=== PATIENT | female | born 1940 | race Caucasian/White ===

== ENCOUNTER 2021-08-31 11:42 | Inpatient (IN) ==
[2021-08-31] MEDS ORDERED: DEXAMETHASONE 4 MG TABLET PO ONE (12:10)
[2021-08-31] MEDS ORDERED: LACTATED RINGERS 1,000 ML IV ONE (12:10)
[2021-08-31 12:27] LABS: POC Calcium, Ionized 0.84 (1.16-1.32); POC Creatinine 1.2 (0.6-1.2); POC Potassium 2.9 (3.3-5.1)
--- NOTE | 2021-08-31 12:39 | EKG ---
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
[2021-08-31] MEDS ORDERED: POTASSIUM CHLORIDE 20 MEQ TABLET PO ONE ×2 (12:41→20:28)
--- NOTE | 2021-08-31 12:44 | XRay Report ---
INDICATION: dyspnea, covid TECHNIQUE: AP portable semiupright chest x-ray COMPARISON: None FINDINGS:Right-sided Port-A-Cath with its tip in the proximal right atrium Lungs:Focal right basilar infiltrate at the cardiophrenic angle. Appearance is consistent with pneumonia. Lungs are otherwise negative. No left lung infiltrate. Heart, vascular:No significant cardiomegaly. Pulmonary vascularity is normal. No pulmonary edema or pulmonary congestion Mediastinum, [place]:No mediastinal widening. No hilar mass Pleura:No pleural fluid. No pleural-based mass or calcification. There is mild elevation of the right hemidiaphragm Skeletal:Negative. IMPRESSION: Right basilar infiltrate consistent with pneumonia Interpreted and Authenticated by: Efren Hyde 08/31/21
[2021-08-31 13:21] LABS: Basophils # (Auto) 0.01 K/mcL (0.00-0.30); Basophils % (Auto) 0.2 % (0.0-2.0); Eosinophils # (Auto) 0.04 K/mcL (0.00-0.70); Eosinophils % (Auto) 0.8 % (0.0-7.0); Hematocrit 27.4 % (34.1-44.9); Hemoglobin 8.4 g/dL (11.2-15.7); Lymphocytes # (Auto) 0.11 K/mcL (1.50-4.80); Lymphocytes % (Auto) 2.1 % (15.5-49.0); Mean Cell Volume 75.1 fL (80.0-100.0); Mean Corpuscular HGB Conc 30.7 g/dL (31.0-36.0); Mean Platelet Volume 11.2 fL (7.4-10.4); Monocytes # (Auto) 0.31 K/mcL (0.10-0.90); Monocytes % (Auto) 5.8 % (1.0-12.0); Neutrophils % (Auto) 91.1 % (38.0-78.0); Platelet Count 217 K/mcL (140-440); RBC 3.65 M/mcL (3.59-5.38); Red Cell Distribution Width 17.4 % (11.5-14.5); WBC 5.3 K/mcL (4.5-11.0)
[2021-08-31 13:35] LABS: ALT/SGPT 9 U/L (<40); AST/SGOT 18 U/L (<32); Albumin 2.9 gm/dL (3.2-5.2); Alkaline Phosphatase 82 U/L (39-117); Bilirubin,Total 0.7 mg/dL (0.1-1.0); Blood Urea Nitrogen 21 mg/dL (8-23); Carbon Dioxide 24 mmol/L (22-30); Chloride 91 mmol/L (96-108); Globulin 2.9 gm/dL (2.2-3.7); Glomerular Filtration Rate 47; Glucose 90 mg/dL (70-105)
--- NOTE | 2021-08-31 13:58 | Emergency Department Note ---
HPI General Chief complaint: Cold/Flu Symptoms Stated complaint: fatigue, nausea, vomiting, diarrhea COVID + Time Seen by Provider: 08/31/21 11:56 Source: patient Mode of arrival: wheelchair Limitations: no limitations History of Present Illness HPI Narrative: Narrative: 81-year-old female with history of lymphoma post CAR-T therapy several years ago, in remission, no other known medical problems presents from [facility] with her for evaluation of general malaise and weakness with known COVID-19 for about the past 7 days. She was here on a cruise ship which was her vector and her had COVID as well. She is traveling here from [place]. She denies any chest pain or any significant shortness of breath. She was found to be hypoxic on arrival requiring nasal cannula oxygen and was placed on this immediately. She denies GI distress. She has been tolerating p.o. but very decreased. Related Data Allergies Allergy/AdvReac Type Severity Reaction Status Date / Time codeine Allergy Unknown Unknown Verified 08/31/21 11:46 Review of Systems ROS ROS Narrative: Narrative: All systems ED: reviewed and negative except as stated. [facility] Narrative Patient History Narrative: Narrative: Medical/Surgical/Family History All Active Problems (Updated 08/31/21 @ 14:54 by Isaias Lundy DO) Pneumonia due to 2019 novel coronavirus (Acute) Acute hypoxemic respiratory failure (Acute) Social History Smoking Status: Never smoker Exam Narrative Narrative: Narrative: General Limitations: no limitations General appearance: Present alert and in no apparent distress Head Head: Present atraumatic and normocephalic Eye Eye: Present normal appearance and EOMI ENT ENT: Present normal exam and mucous membranes moist Neck Neck: Present normal inspection and full ROM Chest Chest: Present normal inspection and symmetric chest wall rise Respiratory Respiratory: Present normal lung sounds bilaterally; Absent respiratory distress Cardiovascular Cardiovascular: Present regular rate and normal rhythm Adbominal Abdominal: Present soft; Absent tenderness Extremities Extremities: Present normal inspection and full ROM Neurological Neurological: Present alert, oriented X3 and normal gait Psychiatric Psychiatric: Present normal affect and normal mood Skin Skin: Present warm (WNL), dry and normal color Course Vital Signs Vital signs: Vital Signs Temperature 98.1 F 08/31/21 11:46 Pulse Rate 103 H 08/31/21 11:46 Respiratory Rate 16 08/31/21 11:46 Blood Pressure 127/58 08/31/21 11:46 Pulse Oximetry (%) 86 L 08/31/21 11:46 Temperature 98.1 F 08/31/21 11:46 Pulse Rate 87 08/31/21 13:31 Respiratory Rate 17 08/31/21 13:31 Blood Pressure 113/55 08/31/21 13:31 Pulse Oximetry (%) 94 08/31/21 13:31 MDM MDM Narrative Medical decision making narrative: Narrative: Patient with pneumonia secondary to COVID-19 associated with hypoxia requiring nasal cannula. She was found to have mild hyponatremia and hypokalemia. She was given IV fluids, dexamethasone, potassium supplementation. She is otherwise well-appearing. She has been vaccinated for COVID x4. Of note, her is using travel insurance to arrange transfer back to [place]. While this is being worked out with bed situation, will admit here Lab Data Lab results reviewed: Yes I reviewed the patient's lab results. Result diagrams: 08/31/21 12:20 08/31/21 12:20 Labs: Lab Results 08/31/21 08/31/21 08/31/21 Range/Units 12:20 12:20 12:22 WBC 5.3 (4.5-11.0) K/mcL RBC 3.65 (3.59-5.38) M/mcL Hgb 8.4 L (11.2-15.7) g/dL Hct 27.4 L (34.1-44.9) % POC Hct (36-48) MCV 75.1 L (80.0-100.0) fL MCH 23.0 L (26.0-34.0) pg MCHC 30.7 L (31.0-36.0) g/dL RDW 17.4 H (11.5-14.5) % Plt Count 217 (140-440) K/mcL MPV 11.2 H (7.4-10.4) fL Neut % (Auto) 91.1 H (38.0-78.0) % Lymph % (Auto) 2.1 L (15.5-49.0) % [place] % (Auto) 5.8 (1.0-12.0) % Eos % (Auto) 0.8 (0.0-7.0) % Baso % (Auto) 0.2 (0.0-2.0) % Lymph # (Auto) 0.11 L (1.50-4.80) K/mcL [place] # (Auto) 0.31 (0.10-0.90) K/mcL Eos # (Auto) 0.04 (0.00-0.70) K/mcL Baso # (Auto) 0.01 (0.00-0.30) K/mcL Absolute Neutrophils 4.86 (1.80-8.00) K/mcL POC Sodium (133-145) Sodium 128 L (133-145) mmol/L POC Potassium (3.3-5.1) Potassium 3.0 L (3.3-5.1) mmol/L POC Chloride (96-108) Chloride 91 L (96-108) mmol/L Carbon Dioxide 24 (22-30) mmol/L POC Total CO2 (22-30) Anion Gap 13.0 (8.0-16.0) POC BUN (6-20) BUN 21 (8-23) mg/dL Creatinine 1.1 (0.6-1.1) mg/dL POC Creatinine (0.6-1.2) GFR Calculation 47 Glucose 90 (70-105) mg/dL POC Glucose (70-105) Calcium 7.0 L (8.6-10.4) mg/dL POC WB Ioniz Calcium (1.16-1.32) Total Bilirubin 0.7 (0.1-1.0) mg/dL AST 18 (<32) U/L ALT 9 (<40) U/L Alkaline Phosphatase 82 (39-117) U/L Total Protein 5.8 L (5.9-8.4) gm/dL Albumin 2.9 L (3.2-5.2) gm/dL Globulin 2.9 (2.2-3.7) gm/dL Albumin/Globulin Ratio 1.0 (1.0-2.3) POC Troponin I 0.06 (0.02-0.08) 08/31/21 Range/Units 12:24 WBC (4.5-11.0) K/mcL RBC (3.59-5.38) M/mcL Hgb (11.2-15.7) g/dL Hct (34.1-44.9) % POC Hct 26.0 L (36-48) MCV (80.0-100.0) fL MCH (26.0-34.0) pg MCHC (31.0-36.0) g/dL RDW (11.5-14.5) % Plt Count (140-440) K/mcL MPV (7.4-10.4) fL Neut % (Auto) (38.0-78.0) % Lymph % (Auto) (15.5-49.0) % [place] % (Auto) (1.0-12.0) % Eos % (Auto) (0.0-7.0) % Baso % (Auto) (0.0-2.0) % Lymph # (Auto) (1.50-4.80) K/mcL [place] # (Auto) (0.10-0.90) K/mcL Eos # (Auto) (0.00-0.70) K/mcL Baso # (Auto) (0.00-0.30) K/mcL Absolute Neutrophils (1.80-8.00) K/mcL POC Sodium 129 L (133-145) Sodium (133-145) mmol/L POC Potassium 2.9 L* (3.3-5.1) Potassium (3.3-5.1) mmol/L POC Chloride 92 L (96-108) Chloride (96-108) mmol/L Carbon Dioxide (22-30) mmol/L POC Total CO2 25.0 (22-30) Anion Gap (8.0-16.0) POC BUN 20 (6-20) BUN (8-23) mg/dL Creatinine (0.6-1.1) mg/dL POC Creatinine 1.2 (0.6-1.2) GFR Calculation Glucose (70-105) mg/dL POC Glucose 92 (70-105) Calcium (8.6-10.4) mg/dL POC WB Ioniz Calcium 0.84 L (1.16-1.32) Total Bilirubin (0.1-1.0) mg/dL AST (<32) U/L ALT (<40) U/L Alkaline Phosphatase (39-117) U/L Total Protein (5.9-8.4) gm/dL Albumin (3.2-5.2) gm/dL Globulin (2.2-3.7) gm/dL Albumin/Globulin Ratio (1.0-2.3) POC Troponin I (0.02-0.08) Radiology Data Radiology results reviewed: Yes I reviewed the patient's radiology results. EKG Data EKG #1: EKG attestation: Yes I reviewed and interpreted this EKG. EKG results narrative: Sinus rhythm at a rate of 85. Normal axis. QTC 480. No acute ST-T changes. Normal EKG. CC TIME Critical Care Time Attestation: Approximately 30 minutes of critical care time was used in order to assess and manage the high probability of imminent or life threatening deterioration to acute hypoxemic respiratory failure secondary to covid which required my highest level of preparedness and interventions with frequent patient assessments. This time is excluding time spent on separately billable procedures. 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
[2021-08-31] MEDS ORDERED: ONDANSETRON 4 MG/2 ML VIAL IV PRN (14:53)
[2021-08-31] MEDS ORDERED: ACETAMINOPHEN 325 MG TABLET PO PRN (14:53)
--- NOTE | 2021-08-31 14:59 | Internal Med History&Physical ---
HPI History of Present Illness Patient information: Note initiated : 08/31/21 at 2:56 pm Service Date, if different from initiated Date: [as above] Patient: Tiana Anderson a 81 y/o F admitted on for Fatigue, Nausea, Vomiting, Diarrhea, COVID+. Chief Complaint: [SOB] Chief complaint: Fever, chills, malaise History of present illness: Ms. Anderson is a 81 year old F presents from her hotel room after she was on a cruise and was exposed to her who tested positive for COVID-19 and has now developed symptoms for the past week. The patient states that she is fully vaccinated and boosted. They are originally from [place] and are trying to return home. I discussed the case with the ER physician. The is working on disposition. In the interim, the hospital service has been asked admit the patient after she was found to be hypoxemic with an O2 of 86% on on ambient air. The patient states that she is experienced progressive malaise, fatigue and shortness of breath over the course of the week. On arrival she was hemodynamically stable and afebrile with a blood pressure of 113/53, heart rate of 94, respirate of 25, and O2 sat of 92% on 2 L. Review of Systems All systems: reviewed and no additional remarkable complaints except as stated Constitutional Constitutional: Present as per HPI, chills, fever(s), lethargy, malaise and night sweats EENT Eyes: Present as per HPI; Absent blurry vision Cardiovascular Cardiovascular: Present as per HPI; Absent chest pain, dyspnea, dyspnea on exertion, leg edema or palpatations Respiratory Respiratory: Present as per HPI and dyspnea; Absent cough, dyspnea on exertion, wheezing or stridor Gastrointestinal Gastrointestinal: Present as per HPI; Absent abdominal pain, diarrhea, dysphagia, hematemesis, melena, nausea or vomiting Musculoskeletal Musculoskeletal: Present as per HPI; Absent joint swelling, limited range of motion, muscle cramps, muscle weakness or myalgias Integumentary Integumentary: Present as per HPI; Absent erythema, new lesions, rash or wounds Neurological Neurological: Present as per HPI; Absent abnormal gait, behavioral changes, focal weakness, headache(s), loss of vision, numbness, sensory deficit or syncope Endocrine Endocrine: Absent change in body appearance, fatigue or heat intolerance Hematologic/Lymphatic Hematologic/Lymphatic: Present as per HPI PFSH PFSH All Active Problems (Updated 08/31/21 @ 14:54 by Isaias Lundy DO) Pneumonia due to 2019 novel coronavirus (Acute) Acute hypoxemic respiratory failure (Acute) MEDS/ALLERGIES Home Medications and Allergies Allergies Allergy/AdvReac Type Severity Reaction Status Date / Time codeine Allergy Unknown Unknown Verified 08/31/21 11:46 EXAM Constitutional Vitals: Temp Pulse Resp BP Pulse Ox 98.1 F 94 H 22 113/53 91 08/31/21 11:46 08/31/21 14:50 08/31/21 14:50 08/31/21 14:50 08/31/21 14:50 General appearance: average body habitus Head Head exam: Present atraumatic, normal inspection and normocephalic Eye Eye exam: Present EOMI, normal appearance and PERRL; Absent conjunctival injection ENT ENT exam: Present normal exam; Absent mucous membranes dry Neck Neck exam: Present full ROM; Absent lymphadenopathy Respiratory Respiratory exam: Present normal respiratory exam and decreased breath sounds; Absent CTAB, respiratory distress or wheezes Cardiovascular Cardiovascular exam: Present normal rate and rhythm and RRR; Absent JVD GI/Abdominal GI/Abdominal exam: Present normal bowel sounds and soft; Absent diminished bowel sounds, distended, guarding, mass, rebound or tenderness Neurological Exam Neurological exam: Present alert, CN II-XII intact and oriented X3 Psychiatric Psychiatric exam: Present normal affect and normal mood Skin Skin exam: Present intact and warm; Absent erythema, pallor, petechiae or rash DATA Data Completed and Pending Labs: Labs from last 24 hours 08/31/21 08/31/21 08/31/21 12:24 12:22 12:20 WBC RBC Hgb Hct POC Hct 26.0 L MCV MCH MCHC RDW Plt Count MPV Neut % (Auto) Lymph % (Auto) [place] % (Auto) Eos % (Auto) Baso % (Auto) Lymph # (Auto) [place] # (Auto) Eos # (Auto) Baso # (Auto) Absolute Neutrophils POC Sodium 129 L Sodium 128 L POC Potassium 2.9 L* Potassium 3.0 L POC Chloride 92 L Chloride 91 L Carbon Dioxide 24 POC Total CO2 25.0 Anion Gap 13.0 POC BUN 20 BUN 21 Creatinine 1.1 POC Creatinine 1.2 GFR Calculation 47 Glucose 90 POC Glucose 92 Calcium 7.0 L POC WB Ioniz Calcium 0.84 L Total Bilirubin 0.7 AST 18 ALT 9 Alkaline Phosphatase 82 Total Protein 5.8 L Albumin 2.9 L Globulin 2.9 Albumin/Globulin Ratio 1.0 POC Troponin I 0.06 08/31/21 12:20 WBC 5.3 RBC 3.65 Hgb 8.4 L Hct 27.4 L POC Hct MCV 75.1 L MCH 23.0 L MCHC 30.7 L RDW 17.4 H Plt Count 217 MPV 11.2 H Neut % (Auto) 91.1 H Lymph % (Auto) 2.1 L [place] % (Auto) 5.8 Eos % (Auto) 0.8 Baso % (Auto) 0.2 Lymph # (Auto) 0.11 L [place] # (Auto) 0.31 Eos # (Auto) 0.04 Baso # (Auto) 0.01 Absolute Neutrophils 4.86 POC Sodium Sodium POC Potassium Potassium POC Chloride Chloride Carbon Dioxide POC Total CO2 Anion Gap POC BUN BUN Creatinine POC Creatinine GFR Calculation Glucose POC Glucose Calcium POC WB Ioniz Calcium Total Bilirubin AST ALT Alkaline Phosphatase Total Protein Albumin Globulin Albumin/Globulin Ratio POC Troponin I A/P Assessment and plan (1) Pneumonia due to 2019 novel coronavirus: Status: Acute (2) Acute hypoxemic respiratory failure: Status: Acute Narrative A/P Narrative: The patient is fortunately vaccinated however was recently exposed to her and was also on a cruise. She is now progressively deteriorated and is hypoxemic requiring supplemental O2. The hospital service was asked admit the patient for further management and evaluation of her SARS COVID-19. Plan of Treatment: At this point, she meets criteria for starting remdesivir 200 mg IV x1 with 100 mg IV daily for total 5 days and dexamethasone 6 mg p.o. daily. We will also start nebulizer treatment with duo nebs and Pulmicort. Continue pulmonary toileting. RT may continue to follow. The is working on disposition to see if they can return to [place]. Time Spent With Patient Time: Total time spent is greater than 50% in coordination of care (as documented) at patient's floor/unit and/or counseling patient: Total time spent with greater than 50% in coordination of care (as documented) at patient's floor/unit and/or counseling patient:: Greater than 70 minutes
[2021-08-31] MEDS ORDERED: REMDESIVIR 200 MG in 0.9 % SODIUM CHLORIDE 250 ML IV ONE (16:00)
[2021-08-31] MEDS: LACTATED RINGERS 1,000 ML IV SCH (16:56)
[2021-08-31] MEDS ORDERED: IPRATROPIUM/ALBUTEROL 3 ML AMPUL.NEB NEB SCH (19:00)
[2021-08-31] MEDS ORDERED: METOPROLOL TARTRATE 5 MG/5 ML VIAL IV ONE ×4 (19:07→20:21)
[2021-08-31] MEDS: 0.9 % SODIUM CHLORIDE 10 ML SYRINGE IV SCH ×3 (19:20→21:21)
[2021-08-31] MEDS: METOPROLOL TARTRATE 25 MG TABLET PO SCH ×2 (19:36→21:43)
[2021-08-31] MEDS: DOCUSATE SODIUM 100 MG CAPSULE PO SCH (20:18)
[2021-08-31] MEDS ORDERED: DIGOXIN 500 MCG/2 ML AMPUL IV ONE (20:27)
[2021-08-31] MEDS: BUDESONIDE 0.5 MG/2 ML AMPUL.NEB NEB SCH (20:36)
[2021-08-31] MEDS ORDERED: SENNOSIDES 1 TABLET PO SCH (21:00)
[2021-08-31] MEDS ORDERED: DILTIAZEM 125 MG/25 ML VIAL IV ONE (21:15)
[2021-08-31] MEDS: guaiFENesin/DEXTROMETHORPHAN ORAL SOL PO PRN (21:20)
[2021-08-31] MEDS: DILTIAZEM 125 MG in DEXTROSE 5% IN WATER 100 ML IV SCH (21:22)
[2021-08-31] MEDS: ENOXAPARIN 60 MG/0.6 ML SYRINGE SQ SCH (21:37)
[2021-09-01 00:18] LABS: Phosphorous 1.8 mg/dL (2.5-4.5)
[2021-09-01] MEDS ORDERED: 0.9 % SODIUM CHLORIDE 500 ML IV ONE (00:52)
[2021-09-01] MEDS ORDERED: AZITHROMYCIN 500 MG in DEXTROSE 5% IN WATER 250 ML IV ONE (02:09)
[2021-09-01] MEDS ORDERED: cefTRIAXone 1 GM VIAL IV ONE (02:11)
[2021-09-01] MEDS ORDERED: AZITHROMYCIN 500 MG VIAL IV ONE (02:29)
[2021-09-01] MEDS ORDERED: cefTRIAXone 1 GM VIAL ONE (02:43)
[2021-09-01] MEDS: 0.9 % SODIUM CHLORIDE 10 ML SYRINGE IV SCH ×4 (02:50→14:30)
[2021-09-01] MEDS: guaiFENesin/DEXTROMETHORPHAN ORAL SOL PO PRN (03:14)
[2021-09-01 04:01] LABS: Appearance,Urine CLEAR (Clear); Bilirubin,Urine Negative (Negative); Color,Urine YELLOW; Culture Indicated,Urine No; Glucose,Urine (UA) Negative (Negative); Ketones,Urine 5 mg/dL (Negative); Leukocyte Esterase,Urine Negative /uL (Negative); Nitrate,Urine Negative (Negative); Protein,Urine Negative (Negative); Specific Gravity,Urine 1.009 (1.000-1.035); Urine RBC 1 /hpf (0-3); Urine Squamous Epithelial Cell 2 /hpf (0-4); Urine WBC 4 /hpf (0-4)
[2021-09-01 07:22] LABS: Basophils # (Auto) 0.02 K/mcL (0.00-0.30); Basophils % (Auto) 0.3 % (0.0-2.0); Eosinophils # (Auto) 0 K/mcL (0.00-0.70); Eosinophils % (Auto) 0 % (0.0-7.0); Hematocrit 26.4 % (34.1-44.9); Hemoglobin 7.8 g/dL (11.2-15.7); Lymphocytes # (Auto) 0.09 K/mcL (1.50-4.80); Lymphocytes % (Auto) 1.3 % (15.5-49.0); Mean Cell Volume 77.4 fL (80.0-100.0); Mean Corpuscular HGB Conc 29.5 g/dL (31.0-36.0); Mean Platelet Volume 11.1 fL (7.4-10.4); Monocytes # (Auto) 0.45 K/mcL (0.10-0.90); Monocytes % (Auto) 6.6 % (1.0-12.0); Neutrophils % (Auto) 91.8 % (38.0-78.0); Platelet Count 168 K/mcL (140-440); RBC 3.41 M/mcL (3.59-5.38); Red Cell Distribution Width 17.7 % (11.5-14.5); WBC 6.8 K/mcL (4.5-11.0)
[2021-09-01] MEDS: LACTATED RINGERS 1,000 ML IV SCH (07:44)
[2021-09-01 07:49] LABS: Blood Urea Nitrogen 15 mg/dL (8-23); Calcium 6.7 mg/dL (8.6-10.4); Carbon Dioxide 20 mmol/L (22-30); Chloride 98 mmol/L (96-108); Glomerular Filtration Rate 69; Glucose 177 mg/dL (70-105)
[2021-09-01] MEDS: DOCUSATE SODIUM 100 MG CAPSULE PO SCH (08:43)
[2021-09-01] MEDS: ENOXAPARIN 60 MG/0.6 ML SYRINGE SQ SCH (08:53)
[2021-09-01] MEDS ORDERED: ENOXAPARIN 40 MG/0.4 ML SYRINGE SQ SCH (09:00)
[2021-09-01] MEDS ORDERED: DEXAMETHASONE 4 MG TABLET PO SCH (09:00)
[2021-09-01] MEDS: BUDESONIDE 0.5 MG/2 ML AMPUL.NEB NEB SCH (09:11)
[2021-09-01 09:33] LABS: Basophils # (Auto) 0.03 K/mcL (0.00-0.30); Basophils % (Auto) 0.3 % (0.0-2.0); Eosinophils # (Auto) 0 K/mcL (0.00-0.70); Eosinophils % (Auto) 0 % (0.0-7.0); Hemoglobin 8.2 g/dL (11.2-15.7); Lymphocytes % (Auto) 1.1 % (15.5-49.0); Mean Cell Volume 76.9 fL (80.0-100.0); Mean Corpuscular HGB Conc 29.3 g/dL (31.0-36.0); Mean Platelet Volume 11.1 fL (7.4-10.4); Monocytes # (Auto) 0.64 K/mcL (0.10-0.90); Monocytes % (Auto) 7.1 % (1.0-12.0); Neutrophils % (Auto) 91.5 % (38.0-78.0); Platelet Count 197 K/mcL (140-440); RBC 3.64 M/mcL (3.59-5.38); Red Cell Distribution Width 17.6 % (11.5-14.5)
[2021-09-01 10:00] LABS: ALT/SGPT 23 U/L (<40); AST/SGOT 55 U/L (<32); Alkaline Phosphatase 195 U/L (39-117)
[2021-09-01] MEDS ORDERED: REMDESIVIR 100 MG in 0.9 % SODIUM CHLORIDE 250 ML IV SCH (10:00)
[2021-09-01 10:01] LABS: Blood Urea Nitrogen 15 mg/dL (8-23); Calcium 7.2 mg/dL (8.6-10.4); Carbon Dioxide 22 mmol/L (22-30); Chloride 98 mmol/L (96-108); Glomerular Filtration Rate 69; Glucose 139 mg/dL (70-105)
[2021-09-01] MEDS: METOPROLOL TARTRATE 25 MG TABLET PO SCH (10:18)
[2021-09-01] MEDS: DILTIAZEM 125 MG in DEXTROSE 5% IN WATER 100 ML IV SCH (10:19)
[2021-09-01] MEDS ORDERED: POTASSIUM PHOSPHATE IV ONE (12:32)
[2021-09-01] MEDS ORDERED: CALCIUM CARBONATE 1,250 MG/5 ML ORAL.SUSP PO ONE (12:32)
[2021-09-01] MEDS ORDERED: WATER IV ONE (12:32)
[2021-09-01] MEDS ORDERED: DEXTROSE 5% IV ONE (12:32)
[2021-09-01] MEDS ORDERED: CALCIUM CARBONATE 500 MG TAB.CHEW CHEWED ONE (12:45)
[2021-09-01] MEDS ORDERED: POTASSIUM PHOSPHATE 40 MEQ in DEXTROSE 5% IN WATER 500 ML IV ONE (13:00)
[2021-09-01] MEDS ORDERED: ESCITALOPRAM 20 MG TABLET PO SCH (13:00)
[2021-09-01] MEDS: PANTOPRAZOLE 40 MG TABLET PO SCH ×2 (13:28→15:23)
--- NOTE | 2021-09-01 13:30 | EKG ---
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 Measurements Intervals [place] Rate: 165 P: [place]: QRS: 17 QRSD: 81 T: 24 QT: 295 QTc: 489 Interpretive Statements Atrial fibrillation with rapid V-rate Ventricular premature complex Low voltage, precordial leads ST depression, probably rate related Electronically Signed On 09-01-2021 13:29:49 PDT by Efren Romo M.D. /store/M0/[id number]
--- NOTE | 2021-09-01 13:30 | EKG ---
[facility] Test Date: 2021-08-31 Pat Name: Tiana Anderson Department: ICU Room: 116 Gender: Female [place]: : 1940 Requested By: Janeth Greene Order Number: [id number] Reading MD: Efren Romo M.D. Measurements Intervals [place] Rate: 79 P: 52 NM: 155 QRS: 10 QRSD: 69 T: 30 QT: 378 QTc: 434 Interpretive Statements Sinus rhythm Low voltage, precordial leads Electronically Signed On 09-01-2021 13:30:06 PDT by Efren Romo M.D. /store/M0/[id number]
[2021-09-01] MEDS ORDERED: PROMETHAZINE 25 MG TABLET PO ONE (16:39)
--- NOTE | 2021-09-01 16:53 | Discharge Summary ---
Discharge Provider Provider IMPORTANT FOLLOW-UP INFORMATION FOR PCP: Patient information: Note initiated : 09/01/21 at 4:53 pm Service Date, if different from initiated Date: [as above] Patient: Tiana Anderson 81 y/o F admitted on 08/31/21 for Fatigue, Nausea, Vomiting, Diarrhea, COVID+. Chief Complaint: [Malaise, fevers, chills] Date of admission: 08/31/21 15:40 Discharge date: 09/01/21 Primary care physician: Unknown Unknown Consults: 08/31/21 Consult to Physician [CONS] Stat Comment: Consulting Provider: Janeth Greene Reason For Exam: Physician to Consult Attending physician on discharge: Janeth Greene COURSE Hospital Course Hospital course: Ms. Anderson is a 81 year old F presents from her hotel room after she was on a cruise and was exposed to her who tested positive for COVID-19 and has now developed symptoms for the past week. The patient states that she is fully vaccinated and boosted. They are originally from [place] and are trying to return home. I discussed the case with the ER physician. The is working on disposition. In the interim, the hospital service has been asked admit the patient after she was found to be hypoxemic with an O2 of 86% on on ambient air. The patient states that she is experienced progressive malaise, fatigue and shortness of breath over the course of the week. On arrival she was hemodynamically stable and afebrile with a blood pressure of 113/53, heart rate of 94, respirate of 25, and O2 sat of 92% on 2 L. At this point, she meets criteria for starting remdesivir 200 mg IV x1 with 100 mg IV daily for total 5 days and dexamethasone 6 mg p.o. daily. We will also start nebulizer treatment with duo nebs and Pulmicort. Continue pulmonary toileting. RT may continue to follow. The is working on disposition to see if they can return to [place]. Hospital course: The patient developed atrial fibrillation with RVR overnight requiring multiple doses of Lopressor 5 mg IV x1 however she was hemodynamically tenuous with a low blood pressure. She was given digoxin 500 mg IV x1 and then started on a Cardizem infusion subsequently. Likely she spontaneously conv erted middle of the night. She was started on therapeutic Lovenox for anticoagulation. I was notified by the nurse that the patient was diaphoretic overnight with rigors. Chest x-ray had revealed right lobar pneumonia and she was covered empirically with ceftriaxone and Zithromax as well. Her lactic acid was checked and was 2.8 at 11 PM. With IV fluids it is come down to 1.8 this morning. The patient's potassium, calcium, and phosphorus were replaced. I had a discussion with the patient's oncologist and hospitalist today and they kindly agreed to accept the patient. She will have a [employer] flight over this evening. Discharge diagnosis: Acute hypoxemic respiratory failure due to SARS COVID-19 Time Spent with Patient Time attestation: Total time spent providing and/or coordinating discharge services: Time spent: Greater than 30 minutes EXAM Constitutional Vitals: Temp Pulse Resp BP Pulse Ox 98.5 F 64 16 116/51 97 09/01/21 12:16 09/01/21 14:00 09/01/21 14:00 09/01/21 14:00 09/01/21 14:00 General appearance: average body habitus, cooperative and mild distress Head Head exam: Present atraumatic and normal inspection Eye Eye exam: Present EOMI Expanded ENT Exam Mouth exam: Present dry mucosa Respiratory Respiratory exam: Present normal respiratory exam and CTAB Cardiovascular Cardiovascular exam: Present normal rate and rhythm and irregular rhythm GI/Abdominal GI/Abdominal exam: Present normal bowel sounds and soft; Absent distended Back Exam Back exam: Absent CVA tenderness (L) Neurological Exam Neurological exam: Present alert and oriented X3 Psychiatric Psychiatric exam: Present normal affect Discharge Data Data Completed and Pending Labs on day of discharge: Labs from last 24 hours 09/01/21 09/01/21 09/01/21 08:34 08:33 08:33 WBC 9.0 RBC 3.64 Hgb 8.2 L Hct 28.0 L MCV 76.9 L MCH 22.5 L MCHC 29.3 L RDW 17.6 H Plt Count 197 MPV 11.1 H Neut % (Auto) 91.5 H Lymph % (Auto) 1.1 L [place] % (Auto) 7.1 Eos % (Auto) 0 Baso % (Auto) 0.3 Lymph # (Auto) 0.10 L [place] # (Auto) 0.64 Eos # (Auto) 0 Baso # (Auto) 0.03 Absolute Neutrophils 8.21 H Differential Comment VBG Lactic Acid Sodium 133 Potassium 4.7 Chloride 98 Carbon Dioxide 22 Anion Gap 13.0 BUN 15 Creatinine 0.8 GFR Calculation 69 Glucose 139 H Calcium 7.2 L Phosphorus Magnesium AST 55 H ALT 23 Alkaline Phosphatase 195 H Urine Color Urine Appearance Urine pH Ur Specific [place] Urine Protein Urine Glucose (UA) Urine Ketones Urine Occult Blood Urine Nitrate Urine Bilirubin Urine Urobilinogen Ur Leukocyte Esterase Urine RBC Urine WBC Ur Squamous Epith Cells Urine Bacteria Ur Culture Indicated? POC Troponin I 09/01/21 09/01/21 09/01/21 05:08 05:08 05:08 WBC 6.8 RBC 3.41 L Hgb 7.8 L Hct 26.4 L MCV 77.4 L MCH 22.9 L MCHC 29.5 L RDW 17.7 H Plt Count 168 MPV 11.1 H Neut % (Auto) 91.8 H Lymph % (Auto) 1.3 L [place] % (Auto) 6.6 Eos % (Auto) 0 Baso % (Auto) 0.3 Lymph # (Auto) 0.09 L [place] # (Auto) 0.45 Eos # (Auto) 0 Baso # (Auto) 0.02 Absolute Neutrophils 6.26 Differential Comment VBG Lactic Acid 1.8 Sodium 130 L Potassium 5.1 Chloride 98 Carbon Dioxide 20 L Anion Gap 12.0 BUN 15 Creatinine 0.8 GFR Calculation 69 Glucose 177 H Calcium 6.7 L Phosphorus Magnesium AST ALT Alkaline Phosphatase Urine Color Urine Appearance Urine pH Ur Specific [place] Urine Protein Urine Glucose (UA) Urine Ketones Urine Occult Blood Urine Nitrate Urine Bilirubin Urine Urobilinogen Ur Leukocyte Esterase Urine RBC Urine WBC Ur Squamous Epith Cells Urine Bacteria Ur Culture Indicated? POC Troponin I 09/01/21 08/31/21 08/31/21 02:56 23:18 20:04 WBC RBC Hgb Hct MCV MCH MCHC RDW Plt Count MPV Neut % (Auto) Lymph % (Auto) [place] % (Auto) Eos % (Auto) Baso % (Auto) Lymph # (Auto) [place] # (Auto) Eos # (Auto) Baso # (Auto) Absolute Neutrophils Differential Comment VBG Lactic Acid 2.8 H Sodium Potassium Chloride Carbon Dioxide Anion Gap BUN Creatinine GFR Calculation Glucose Calcium Phosphorus Magnesium AST ALT Alkaline Phosphatase Urine Color Yellow Urine Appearance Clear Urine pH 5.0 Ur Specific [place] 1.009 Urine Protein Negative Urine Glucose (UA) Negative Urine Ketones 5 A Urine Occult Blood 0.20 Urine Nitrate Negative Urine Bilirubin Negative Urine Urobilinogen 4.0 A Ur Leukocyte Esterase Negative Urine RBC 1 Urine WBC 4 Ur Squamous Epith Cells 2 Urine Bacteria None Ur Culture Indicated? No POC Troponin I 0.05 08/31/21 08/31/21 20:00 12:20 WBC RBC Hgb Hct MCV MCH MCHC RDW Plt Count MPV Neut % (Auto) Lymph % (Auto) [place] % (Auto) Eos % (Auto) Baso % (Auto) Lymph # (Auto) [place] # (Auto) Eos # (Auto) Baso # (Auto) Absolute Neutrophils Differential Comment VBG Lactic Acid Sodium Potassium Chloride Carbon Dioxide Anion Gap BUN Creatinine GFR Calculation Glucose Calcium Phosphorus 1.8 L Magnesium 1.8 AST ALT Alkaline Phosphatase Urine Color Urine Appearance Urine pH Ur Specific [place] Urine Protein Urine Glucose (UA) Urine Ketones Urine Occult Blood Urine Nitrate Urine Bilirubin Urine Urobilinogen Ur Leukocyte Esterase Urine RBC Urine WBC Ur Squamous Epith Cells Urine Bacteria Ur Culture Indicated? POC Troponin I Pending Discharge Plan Patient/Caregiver Discharge Instructions Activity: other Diet: Regular Diet Prescriptions: Continued alprazolam 1 mg tablet 1 tab PO PRN PRN (Reason: Anxiety) 0RF Rx Instructions: Take before dental work and MRI esomeprazole magnesium 40 mg capsule,delayed release(DR/EC) 1 cap PO QDAY 0RF diclofenac-misoprostol 50-200 mg-mcg tablet,IR,delayed rel,biphasic 1 tab PO BID 0RF zolpidem 10 mg tablet 0.5 tab PO HSP PRN (Reason: insomnia) 0RF ondansetron 4 mg tablet,disintegrating 1 tab PO Q6-8HP PRN (Reason: nausea/vomiting) 0RF escitalopram oxalate 20 mg tablet 1 tab PO QDAY 0RF esomeprazole magnesium [Nexium 24HR] 20 mg Capsule,Delayed Release(Dr/Ec) 20 mg PO QDAY 0RF Follow Up Plan Follow up with: Unknown,Unknown [Primary Care Provider] - Patient Disposition: Xfer As Inpt ([facility]) Plan of Treatment: At this point, she meets criteria for starting remdesivir 200 mg IV x1 with 100 mg IV daily for total 5 days and dexamethasone 6 mg p.o. daily. We will also start nebulizer treatment with duo nebs and Pulmicort. Continue pulmonary toileting. RT may continue to follow. The is working on disposition to see if they can return to [place]. Prognosis: Fair Rehab Potential: Fair Overall status at discharge: patient is not back to baseline Discharge Orders: Discharge Order (Routine); Ordered 09/01/21 Ordered By: Janeth VIZCARRA VTE Deep Vein Thrombosis/Pulmonary Embolism Present on Admission: No
== END 2021-09-01 19:55 | disposition short-term general hospital (02) | DRG 177 ==
LOC: ED 11:42 → ICU 15:40
PROVIDERS: ADMIT Student in an Organized Health Care Education/Training Program; ATTEND Student in an Organized Health Care Education/Training Program